=== PATIENT | male | born 1965 | race Caucasian/White ===

== ENCOUNTER → 2023-10-02 10:43 | Outpatient (REF) | payer MEDICARE, OTHER, SELFPAY ==
--- NOTE | 2023-10-02 12:52 | EEG.RPT ---
Electroencephalogram Report
Recording
Date of EE10/02/23
Type of EEG: Routine
Length of EEG recordin minutes
Done with Video Recording: Yes
Patient Status: Outpatient
Recording Conditions: Awake, Drowsy and Asleep
Hyperventilation Performed: Yes
Photic Stimulation Performed: Yes
Report
LESS THAN 1 HOUR EEG REPORT
EEG INTERPRETATION:
Unremarkable EEG for age
CLINICAL CORRELATION:
A normal EEG does not rule out a diagnosis of epilepsy. If clinical suspicion for seizure persists, a prolonged recording may be warranted.
Clinical correlation is advised.
METHODS:
A 21 channel digitized electroencephalogram (EEG) was performed in the [facility]. The 10/20 international system of electrode placement was used with ECG and lateral/vertical eye movements recorded. Persyst quantitative EEG
analysis was performed.
ELECTROENCEPHALOGRAPHER IMPRESSION(S):
Quality of study
Good
Background
Unremarkable, well maintained, low amplitude alpha-frequency and unremarkable anterior-posterior voltage gradient
With eye opening the background activity changed to a low voltage mixture of frequencies.
Sleep
Drowsiness present
Stage 1 sleep briefly recorded
Hyperventilation
Did not activate the record
Photic Stimulation
Did not activate the record
ECG
Normal sinus rhythm
== END ==
LOC: RCS 10:43
PROVIDERS: ATTENDING PHYSICIAN Specialist; FAMILY PHYSICIAN Internal Medicine
DX: R55 Syncope and collapse (principal)
CPT/HCPCS: 95816

== ENCOUNTER → 2023-10-21 08:51 | Outpatient (REF) | payer MEDICARE, OTHER, SELFPAY | LOC: MRI 3T 08:51 | PROVIDERS: ATTENDING PHYSICIAN Specialist; FAMILY PHYSICIAN Internal Medicine | DX: G35 Multiple sclerosis (principal) | CPT/HCPCS: 70553; A9575 ==

== ENCOUNTER 2025-01-21 10:18 | Emergency (ER) | payer MEDICARE, OTHER, SELFPAY ==
[2025-01-21 10:23] VITALS: BP 170/84
[2025-01-21 10:50] LABS: % Basophils 1.1 % (0-2); % Immature Granulocytes 0.6 % (0-0.5); % Lymphocytes 24.1 % (20.5-51.1); % Monocytes 12.1 % (1.7-9.3); % Neutrophils 58.1 % (42.2-75.2); Absolute Basophils 0.1 10^3/uL (0-0.2); Absolute Eosinophils 0.3 10^3/uL (0-0.7); Absolute Immature Granulocytes 0.1 10^3/uL (0-0.05); Absolute Neutrophils 4.9 10^3/uL (1.4-6.5); Hemoglobin 14.4 g/dL (13.0-18.0); Mean Corp Hgb Conc. 35.1 g/dL (33.0-37.0); Mean Corpuscular Hgb 33.5 pg (27.0-31.0); Mean Corpuscular Volume 95.3 fL (80.0-94.0); Mean Platelet Volume 9.7 fL (7.4-10.4); Nucleated Red Blood Cells % 0 % (-); Platelet Count 249 10^3/uL (130-400); Red Cell Dist. Width 12.5 % (11.5-14.5); White Blood Cell Count 8.5 10^3/uL (4.8-10.8)
[2025-01-21 11:02] LABS: Blood Urea Nitrogen 8 mg/dl (9-20); Calcium 9.9 mg/dl (8.4-10.2); Carbon Dioxide 28 mmol/L (22-30); Chloride 108 mmol/L (98-107); Glucose 126 mg/dl (70-99); Sodium 141 mmol/L (135-145); eGFR > 60.00
[2025-01-21 12:00] VITALS: BP 149/82
[2025-01-21 12:02] VITALS: BMI 31.9
--- NOTE | 2025-01-21 12:49 | ED.GENMED ---
History of Present Illness
General
Chief Complaint: Swelling
Source: patient
Exam Limitations: none
Time Seen by Provider: 01/21/25 11:55
Nursing documentation reviewed up to this point in time: agreed with
History of Present Illness
History of Present Illness:
Patient is a 59-year-old male with history hypertension, hyperlipidemia, diabetes, MS who presents to the emergency department with atraumatic swelling of left upper extremity. Patient reports progressively worsening swelling in his left
forearm/hand over the past month. He reports that he initially woke up about a month ago and there was a small bite/scab on his left dorsal wrist and he noticed swelling, pain, and warmth. He was seen in his primary care physician at that time
where he was prescribed a steroid taper course and a course of Keflex to cover for a possible infectious component. He reports that the redness, warmth, and pain did seem to subside mildly with these medications although swelling has persisted, if
not worsened.
He believes that he was bit by spider at the initial time of injury. Patient denies any recent trauma. He denies any pain with range of motion of his wrist. He denies any numbness/tingling in left upper extremity. Patient denies any fever or
chills.
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 He is unable to lift his arm on his own.
Review of Systems
Review of Systems
Allergies reviewed?: Yes
All Other Systems: ROS reviewed and negative except as documented in HPI and ROS
Phy Exam
Physical Exam
Physical Exam:
Vitals: Hypertensive, otherwise vital signs stable. Afebrile
General: Patient is well appearing, no acute distress
Skin: Edema of left forearm from hand to elbow without any obvious laceration or areas of cellulitis.
Head: Normocephalic, atraumatic
Eyes: Sclera nonicteric. EOMs intact. No nystagmus.
Throat: Protecting airway
Neck: Normal ROM, no cervical spine tenderness, no meningismus
Cardiac: Regular rate and rhythm, no murmurs.
Pulm: Normal respiratory effort, no wheezes, rales, rhonchi heard on exam
.
Abdomen: No abdominal tenderness.
Extremities: Significant edema of left hand and left forearm from hand to elbow with venous stasis changes of skin. No deformity or bony tenderness of left hand or left wrist. No erythema or warmth. Acceptable ROM in left wrist without significant
pain. 2+ palpable left radial and left brachial pulse. Mildly prolonged capillary refill.
Neuro: AAOx3. Grossly intact
Psychiatric: Normal affect.
Scores
Heart Failure Risk
Heart Failure Risk Score: Not Applicable
Course
Orders/Labs/Results
Orders:
Orders
01/21/25 10:32
Basic Metabolic Panel Urgent
Complete Blood Count/With Diff Urgent
Lyme Progressive Urgent
Comment: ADD
Uric Acid Urgent
01/21/25 12:22
Arms, left US [US Periph Venous UPPER Ext LT] Urgent
Comment:
Reason For Exam: Atraumatic pain / swelling of LUE
01/21/25 12:26
Add On- LAB Urgent
Tests Added?: lyme progressive, uric acid
01/21/25 14:15
Michael Wrap Left-Treatment ONCE
Abnormal Lab Results
01/21/25
10:32
RBC 4.30 L 10^6/uL
(4.70-6.10)
MCV 95.3 H fL
(80.0-94.0)
MCH 33.5 H pg
(27.0-31.0)
Abs Immat Gran (auto) 0.1 H 10^3/uL
(0-0.05)
Absolute Monos (auto) 1.0 H 10^3/uL
(0.1-0.6)
Immature Gran % 0.6 H %
(0-0.5)
Monocytes % 12.1 H %
(1.7-9.3)
Chloride 108 H mmol/L
(98-107)
BUN 8 L mg/dl
(9-20)
Glucose 126 H mg/dl
(70-99)
01/21/25 10:32
01/21/25 10:32
Vital Signs
Initial and Last Documented VS:
Initial Vital Signs
Temp Pulse Resp BP Pulse Ox
98.4 F 93 16 170/84 97
01/21/25 10:23 01/21/25 10:23 01/21/25 10:23 01/21/25 10:23 01/21/25 10:23
Last Documented Vital Signs
Temp Pulse Resp BP Pulse Ox
98.4 F 80 16 149/82 95
01/21/25 10:23 01/21/25 12:00 01/21/25 12:00 01/21/25 12:00 01/21/25 12:00
MDM/Problems Addressed
Differential Diagnosis Includes:
Not limited to: Dependent edema, DVT, cellulitis, inflammatory arthritis, etc.
MDM/Problems Addressed:
59-year-old male with one month of atraumatic pain and swelling in left upper extremity. Treated with course of steroids and antibiotics initially by PCP with improvement in erythema, warmth, and some pain, although swelling persists. No fever,
chills, chest pain, or shortness of breath. He has chronic paralysis in LUE secondary to MS. Vitals and physical exam as above.
Labs obtained in triage and reviewed. No leukocytosis or left shift. Chemistry without clinically significant abnormalities. Exam not consistent with cellulitis � do not suspect infectious process today. Will obtain ultrasound of left upper
extremity to rule out DVT.
Update: LUE ultrasound without evidence of DVT. Do not suspect cellulitis. Do not suspect septic arthritis as patient actually has very good range of motion in left wrist without pain. Symptoms likely related to dependent edema as patient has very
little ability to move affected arm. There appears to be component of venous stasis changes in skin as well, which may be contributing to edema. Unable to completely exclude underlying inflammatory process, although lower suspicion for gout today.
Did send Lyme test and will contact patient if positive.
Do not feel antibiotics indicated. Will place compression sleeve and advise compression, elevation and primary care f/u. Close return precautions discussed. Case discussed w/ attending physician.
Chronic conditions affecting care:
Hypertension, diabetes, MS with chronic paralysis of left upper extremity
Acute Exacerbation and/or Progression of Chronic Illness:
Acutely hypertensive
*Radiology
Radiology exam reviewed: radiology read reviewed
*Pulse Oximetry
Patient hypoxic: no
*EKG
Interpreted by ED Provider?: NA
*Office System Analyst Interpretation
Rate: Office System Analyst- N/A
*Critical Care Note
Total Time (30-74mins, 75-104mins- exclusive of procedures): Not Applicable
ED Attending Note
-
Portions of this chart may have been created with voice recognition software.� Occasional wrong word or��sound alike� substitutions may have occurred due to the inherent limitations of voice recognition software.
Discharge Plan
Departure
Patient Disposition: Home (Routine Discharge)
Date of Disposition: 01/21/25
Time of Disposition: 14:17
Patient with high blood pressure during this ER visit?: Yes
Condition: Good
Covid-19: Not Applicable
Discharge Problem:
Swelling of left upper extremity, Venous stasis of left arm
Instructions: Dependent Edema (DC), Swelling, BLOOD PRESSURE
Prescriptions:
No Action
gabapentin 600 mg Tablet
600 mg PO TID
atorvastatin [Lipitor] 20 mg Tablet
20 mg PO QPM
metformin 1,000 mg Tablet
1,000 mg PO BID
lisinopril 10 mg Tablet
10 mg PO QPM
Ocrevus 30 mg/mL Solution
600 mg IV [id number]
Referrals:
Geoffrey Newman MD [Family Provider, Internal Medicine] - Follow up in 5-7 days
Activity Restrictions/Additional Instructions:
RETURN TO THE EMERGENCY DEPARTMENT ANY FEVER, CHILLS, WORSENING SWELLING OR REDNESS OR WARMTH OF LEFT ARM, NUMBNESS/TINGLING OR COOLNESS OF LEFT ARM, WORSENING IN CURRENT SYMPTOMS, OR ANY OTHER CONCERNS
- As discussed�your lab work showed no clinically significant abnormalities while in the emergency department. Your ultrasound showed no evidence of a blood clot of your left arm. A test for Lyme disease was sent and we will contact you if this is
positive.
- I suspect that some of your swelling is secondary to dependent edema/venous insufficiency. You should keep compression sleeve on your left arm and elevate as often as possible.
- Follow-up with primary care for further evaluation/management and to ensure that symptoms are improving.
Monitor your symptoms closely and return to the emergency department with any acute worsening/new symptoms or any signs of infection
Interventions
Interventions:
*Risk Screen - Suicide Last Done: 01/21/25 10:23
*General Assessment Last Done: 01/21/25 10:23
*Neglect/Abuse Screening Last Done: 01/21/25 12:03
*ED- Fall Risk Assessment Last Done: 01/21/25 12:03
*ED COVID-19 Vaccine History Last Done: 01/21/25 12:03
*Nursing Disposition Last Done: 01/21/25 14:32
ED- Cardiac Assessment Last Done: 01/21/25 12:05
ED- Pulmonary Assessment Last Done: 01/21/25 12:07
ED-Skin Assessment Last Done: 01/21/25 12:07
Discharge Date and Time
Discharge Date/Time: 01/21/25 14:33
Print Language: JAPANESE
--- NOTE | 2025-01-21 14:23 | EDRN ---
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 I brought a tubigrip compression sleeve that the pt was able to utilize. I gave him several extra pieces and told
him to make sure it stays tight but not constricting. He has a sling at home. PA aware
[2025-01-25 13:57] LABS: Lyme Antibody Screen, EIA Negative (Negative)
== END 2025-01-21 14:33 | disposition home or self-care (01) ==
LOC: EMR 10:18
PROVIDERS: Emergency Medicine; EMERGENCY PHYSICIAN Emergency Medicine; FAMILY PHYSICIAN Internal Medicine; OTHER PHYSICIAN Specialist
DX: I87.8 Other specified disorders of veins (principal); R22.32 Localized swelling, mass and lump, left upper limb; I10 Essential (primary) hypertension; E78.5 Hyperlipidemia, unspecified; E11.9 Type 2 diabetes mellitus without complications; G35 Multiple sclerosis
CPT/HCPCS: 99284; 80048; 84550; 85025; 86618; 93971

== ENCOUNTER → 2025-06-22 13:51 | Outpatient (REF) | payer MEDICARE, OTHER, SELFPAY | LOC: MRI 3T 13:51 | PROVIDERS: ATTENDING PHYSICIAN Specialist; FAMILY PHYSICIAN Internal Medicine | DX: G35.D Multiple sclerosis, unspecified (principal); Z13.5 Encounter for screening for eye and ear disorders | CPT/HCPCS: 70551; 72146 ==